=== PATIENT | male | born 1940 | race Caucasian/White ===

== ENCOUNTER → 2016-04-17 | Outpatient (REF) | payer MEDICARE, OTHER ==
[2016-04-17 15:08] LABS: ALBUMIN 3.6 GM/DL (3.2-5.2); ALBUMIN/GLOBULIN RATIO 1.16 (1.00-1.93); BILIRUBIN,TOTAL 0.7 MG/DL (0.2-1.0); CALCIUM LEVEL 8.8 MG/DL (8.8-10.2); CREATININE FOR GFR 1.3 MG/DL (0.70-1.30); GLOMERULAR FILTRATION RATE 57.4 (>42); POTASSIUM SERUM 3.9 MEQ/L (3.5-5.1); TOTAL PROTEIN 6.7 GM/DL (6.4-8.2)
== END ==
LOC: M SFHCLACO 09:08
PROVIDERS: ATTEND Physician Assistant
DX: I10 Essential (primary) hypertension (principal); E78.2 Mixed hyperlipidemia

== ENCOUNTER → 2017-05-20 | Outpatient (REF) | payer MEDICARE, OTHER | LOC: M LAB REF 12:15 | DX: N39.0 Urinary tract infection, site not specified (principal) | CPT/HCPCS: 87186 ==

== ENCOUNTER → 2017-06-02 | Outpatient (REF) | payer MEDICARE, OTHER ==
[2017-06-02 15:17] LABS: ALBUMIN 3.4 GM/DL (3.2-5.2); ALBUMIN/GLOBULIN RATIO 0.97 (1.00-1.93); ALKALINE PHOSPHATASE 90 U/L (45-117); ALT/SGPT 17 U/L (12-78); ANION GAP 6 MEQ/L (8-16); AST/SGOT 18 U/L (7-37); BILIRUBIN,TOTAL 0.5 MG/DL (0.2-1.0); BLOOD UREA NITROGEN 23 MG/DL (7-18); CALCIUM LEVEL 9.1 MG/DL (8.8-10.2); CARBON DIOXIDE LEVEL 29 MEQ/L (21-32); CHLORIDE LEVEL 108 MEQ/L (98-107); CHOLESTEROL LEVEL 190 MG/DL (<200); CHOLESTEROL RISK RATIO 5.757 (<5); CREATININE FOR GFR 1.51 MG/DL (0.70-1.30); GLOMERULAR FILTRATION RATE 48.2 (>42); GLUCOSE, FASTING 102 MG/DL (70-100); HDL CHOLESTEROL 33 MG/DL (>40); LDL CHOLESTEROL 120.2 MG/DL (<100); NON-HDL-C 157 MG/DL; POTASSIUM SERUM 4.1 MEQ/L (3.5-5.1); SODIUM LEVEL 143 MEQ/L (136-145); TOTAL PROTEIN 6.9 GM/DL (6.4-8.2); TRIGLYCERIDES LEVEL 184 MG/DL (<150)
== END ==
LOC: M SFHCLACO 08:10
DX: I10 Essential (primary) hypertension (principal); E78.2 Mixed hyperlipidemia
CPT/HCPCS: 80053

== ENCOUNTER → 2017-06-09 | Outpatient (REF) | payer MEDICARE, OTHER ==
[2017-06-09 15:20] LABS: ANION GAP 7 MEQ/L (8-16); BLOOD UREA NITROGEN 20 MG/DL (7-18); CALCIUM LEVEL 8.9 MG/DL (8.8-10.2); CARBON DIOXIDE LEVEL 30 MEQ/L (21-32); CHLORIDE LEVEL 105 MEQ/L (98-107); CREATININE FOR GFR 1.42 MG/DL (0.70-1.30); GLOMERULAR FILTRATION RATE 51.7 (>42); GLUCOSE, FASTING 97 MG/DL (70-100); SODIUM LEVEL 142 MEQ/L (136-145)
== END ==
LOC: M SFHCLACO 08:17
DX: I10 Essential (primary) hypertension (principal); Z79.899 Other long term (current) drug therapy; E78.2 Mixed hyperlipidemia; M10.9 Gout, unspecified; E83.51 Hypocalcemia; L29.9 Pruritus, unspecified; Z83.49 Family history of other endocrine, nutritional and metabolic diseases
CPT/HCPCS: 84443

== ENCOUNTER → 2018-02-19 | Outpatient (REF) | payer MEDICARE, OTHER ==
[2018-02-19 13:04] LABS: BASO # 0.1 10^3/uL (0.0-0.2); BASO % 0.8 % (0.0-1.0); EOS # 0.7 10^3/uL (0.0-0.50); EOS % 6.5 % (0.0-3.0); HEMATOCRIT 50.4 % (42.0-52.0); HEMOGLOBIN 16.9 g/dl (13.5-17.5); LYMPH # 2.1 10^3/uL (1.5-4.5); LYMPH % 19.3 % (24.0-44.0); MEAN CORPUSCULAR HEMOGLOBIN 31.1 pg (27.0-33.0); MEAN CORPUSCULAR HGB CONC 33.5 g/dl (32.0-36.5); MEAN CORPUSCULAR VOLUME 92.6 fl (80.0-96.0); MONO # 0.9 10^3/uL (0.0-0.8); MONO % 8.4 % (0.0-5.0); NEUTROPHILS % 64.4 % (36.0-66.0); PLATELET COUNT, AUTOMATED 210 10^3/uL (150-450); RED BLOOD COUNT 5.44 10^6/uL (4.30-6.10); WHITE BLOOD COUNT 10.9 10^3/uL (4.0-10.0)
[2018-02-19 13:09] LABS: APPEARANCE, URINE CLEAR (CLEAR); BACTERIA, URINE AUTO NEGATIVE (NEGATIVE); BILIRUBIN, URINE AUTO NEGATIVE (NEGATIVE); BLOOD, URINE BLOOD NEGATIVE (NEGATIVE); COLOR, URINE YELLOW (YELLOW); GLUCOSE, URINE (UA) AUTO NEGATIVE (NEGATIVE); KETONE, URINE AUTO NEGATIVE (NEGATIVE); LEUKOCYTE ESTERASE, URINE AUTO NEGATIVE (NEGATIVE); MUCUS, URINE SMALL (NEGATIVE); NITRITE, URINE AUTO NEGATIVE (NEGATIVE); PROTEIN, URINE AUTO 2+ mg/dL (NEGATIVE); RBC, URINE AUTO 2 /HPF (0-3); SPECIFIC GRAVITY URINE AUTO 1.018 (1.002-1.035); SQUAMOUS EPITHELIAL CELL UR AU 0 /HPF (0-6); WBC, URINE AUTO 1 /HPF (0-3)
[2018-02-19 13:13] LABS: ALBUMIN 3.5 GM/DL (3.2-5.2); BILIRUBIN,TOTAL 0.5 MG/DL (0.2-1.0); CALCIUM LEVEL 9.1 MG/DL (8.8-10.2); CREATININE FOR GFR 1.37 MG/DL (0.70-1.30); GLOMERULAR FILTRATION RATE 53.8 (>42); POTASSIUM SERUM 3.8 MEQ/L (3.5-5.1); TOTAL PROTEIN 6.8 GM/DL (6.4-8.2)
[2018-02-19 13:21] LABS: TOTAL 25(OH) VITAMIN D 18.5 NG/ML (30.0-100.0)
[2018-02-19 13:38] LABS: HEMOGLOBIN A1c 6.2 %
[2018-02-19 14:13] LABS: MAU/CREAT RATIO 535.7 MCG/MG (0.0-30.0)
== END ==
LOC: M SFHCADAM 09:18
PROVIDERS: ATTEND Physician Assistant Medical
DX: I12.9 Hypertensive chronic kidney disease with stage 1 through stage 4 chronic kidney disease, or unspecified chronic kidney disease (principal); E78.2 Mixed hyperlipidemia; N18.3 Chronic kidney disease, stage 3 (moderate)

== ENCOUNTER → 2018-03-05 | Outpatient (CLI) | payer MEDICARE, OTHER ==
--- NOTE | 2018-03-05 08:33 | REP ---
Urinary tract sonogram: History: Chronic kidney disease, stage III. Comparison: No comparison study. Findings: Scanning at the level of the urinary bladder shows no abnormality. The bladder is nearly empty at the time of scanning. Renal cortical echogenicity pattern is normal bilaterally and contours are smooth. There is no evidence of hydronephrosis, cyst, mass, or calculus in either kidney. The right kidney measures 11.5 x 6.1 x 6.3 cm. There is a 1.8 x 1.5 x 1.0 cm cyst at the upper pole of the right kidney. There is also 1.9 x 1.6 x 1.8 cm cyst in the upper pole. A 1.1 cm cyst is seen in the lower pole on the right. Left renal dimensions are 12.9 x 5.7 x 5.5 cm. On the left, there is a one 0.0 x 1.2 x 0.7 cm cyst in the mid pole position. Impression: Small bilateral renal cysts. Otherwise negative urinary tract sonography. Electronically Signed by Guido Grider MD 03/05/2018 08:24 A
== END ==
LOC: M RAD 07:49
PROVIDERS: ATTEND Physician Assistant Medical
DX: N28.1 Cyst of kidney, acquired (principal); N18.3 Chronic kidney disease, stage 3 (moderate)

== ENCOUNTER → 2018-03-05 | Outpatient (CLI) | payer MEDICARE, OTHER ==
--- NOTE | 2018-03-09 09:47 | ECHO ---
DATE OF PROCEDURE: 03/05/2018 REFERRING PHYSICIAN: Aileen Hampton, physician medical office receptionist assistant. INDICATION: Localized edema. HEIGHT: 67 inches. WEIGHT: 218 pounds. 2D MEASUREMENTS: Left atrium: 3.7 cm Left atrial volume index: 31 Aortic root: 3.7 cm Ventricular septum: 1.30 cm Posterior wall: 1.31 cm Left ventricle diastole: 4.7 cm Inferior vena cava: 1.5 cm (more than 50% inspiratory variation). DOPPLER MEASUREMENTS: Aortic valve velocity: 225 cm/s LVOT velocity: 91.6 cm/s LVOT VTI: 17.3 cm Trace mitral regurgitation. Mitral E velocity: 74.7 cm/s Mitral A velocity: 89.7 cm/s Mitral deceleration time: 239 ms Very mild tricuspid regurgitation. Estimated right ventricle systolic pressure 30 mmHg assuming a right atrial pressure of 5 mmHg. Pulmonary artery systolic pressure 19 mmHg. MITRAL ANNULAR TISSUE DOPPLER: E-prime septal: 5.1 cm/s E-prime lateral: 5.7 cm/s DESCRIPTION: Rhythm was sinus bradycardia. Image quality was fair. No pericardial effusion. This was a 2D, M-mode, color flow Doppler, and pulsed wave Doppler examination and included mitral annular tissue Doppler. CONCLUSIONS: 1. Mild concentric left ventricular hypertrophy. Normal regional LV wall motion and wall thickening. Normal LV systolic function. LVEF 60% by visual estimate. Grade I LV diastolic dysfunction. 2. Mild left atrial dilatation by left atrial volume index. 3. Moderate aortic valve sclerosis of a 3-cusp aortic valve. No aortic valve regurgitation. 4. Moderate mitral annular calcification. Trace mitral regurgitation. No mitral stenosis. 5. Suggestive of central venous pressure of 5-10 mmHg (normal). ADDITIONAL COMMENTS AND RECOMMENDATIONS: Suggest a followup echocardiogram Doppler in 3 years.
== END ==
LOC: M CARPUL 07:45
PROVIDERS: ATTEND Physician Assistant Medical
DX: R60.1 Generalized edema (principal); N28.1 Cyst of kidney, acquired; N18.3 Chronic kidney disease, stage 3 (moderate)

== ENCOUNTER → 2018-03-26 | Outpatient (REF) | payer MEDICARE, OTHER | LOC: M SFHCPLAZ 19:03 | PROVIDERS: ATTEND Dermatology | DX: D22.30 Melanocytic nevi of unspecified part of face (principal); L57.0 Actinic keratosis; L57.8 Other skin changes due to chronic exposure to nonionizing radiation; L81.4 Other melanin hyperpigmentation ==

== ENCOUNTER → 2018-08-12 | Outpatient (REF) | payer MEDICARE, OTHER | LOC: M SFHCLACO 16:35 | PROVIDERS: ATTEND Physician Assistant | DX: L30.9 Dermatitis, unspecified (principal) | CPT/HCPCS: 11104; 88305; G0463 ==

== ENCOUNTER → 2018-09-29 | Outpatient (REF) | payer MEDICARE, OTHER ==
[2018-09-29 15:19] LABS: ALBUMIN 3.5 GM/DL (3.2-5.2); BILIRUBIN,TOTAL 0.6 MG/DL (0.2-1.0); CALCIUM LEVEL 8.9 MG/DL (8.8-10.2); CHOLESTEROL RISK RATIO 5.4 (<5); CREATININE FOR GFR 1.34 MG/DL (0.70-1.30); TOTAL 25(OH) VITAMIN D 20.3 NG/ML (30.0-100.0); TOTAL PROTEIN 6.6 GM/DL (6.4-8.2); URIC ACID 7.8 MG/DL (3.5-7.2)
== END ==
LOC: M SFHCADAM 08:02
PROVIDERS: ATTEND Physician Assistant
DX: I12.9 Hypertensive chronic kidney disease with stage 1 through stage 4 chronic kidney disease, or unspecified chronic kidney disease (principal); E55.9 Vitamin D deficiency, unspecified; E78.2 Mixed hyperlipidemia; N18.3 Chronic kidney disease, stage 3 (moderate); Z12.5 Encounter for screening for malignant neoplasm of prostate; M10.9 Gout, unspecified
CPT/HCPCS: 80053; 80061; 82306; 84550; G0103

== ENCOUNTER → 2018-11-27 | Outpatient (CLI) | payer MEDICARE, OTHER ==
[~2018-11-27] MED LIST: ATEN50TA9; INDO-16; NIAC500T64; PRAV10TA3; VITA500045
--- NOTE | 2018-11-27 11:12 | REP ---
Limited exam. REASON: Pain after trauma. PRIORS: None. There is a grade 1 superior endplate compression deformity involving L1, the age cannot be determined by this exam. There is mild to moderate posterior disc space narrowing and anterior lipping at every level. Tiny partial syndesmophytes are seen bilaterally at all levels. There is degenerative facet joint change seen L3-4 through L5-S1 on the lateral view. There is calcifications of the aortic wall and evidence of aneurysmal dilatation with an AP measurement of approximately 6.3 cm. IMPRESSION: 1. Superior endplate compression deformity of L1 as described above. 2. Chronic changes as described above. 3. Suspected abdominal aortic aneurysm. Abdominal aortic ultrasound is recommended for further evaluation. A stat report was immediately generated at the time of this dictation and made available for the patient's healthcare provider Jayla Naidu for review. Electronically Signed by Bryant Mina DO 11/27/2018 12:18 P
== END ==
LOC: M ADAMS 10:36
PROVIDERS: ATTEND Physician Assistant
DX: S30.0XXA Contusion of lower back and pelvis, initial encounter (principal); X58.XXXA Exposure to other specified factors, initial encounter; Y92.89 Other specified places as the place of occurrence of the external cause; Y93.9 Activity, unspecified; Y99.9 Unspecified external cause status

== ENCOUNTER 2018-11-30 15:50 | Emergency (ER) | payer MEDICARE, OTHER ==
[~2018-11-30] VITALS: Ht 170.2 cm; Wt 92.3 kg
[2018-11-30] MEDS ORDERED: NIAC500T64 (16:02)
[2018-11-30] MEDS ORDERED: VITA500045 (16:02)
[2018-11-30] MEDS ORDERED: INDO-16 (16:02)
[2018-11-30] MEDS ORDERED: PRAV10TA3 (16:02)
[2018-11-30] MEDS ORDERED: ATEN50TA9 (16:02)
[2018-11-30 17:47] VITALS: BP 142/71
== END 2018-11-30 17:48 | disposition home or self-care (01) ==
LOC: M ED 15:50
DX: M54.5 Low back pain (principal); I71.4 Abdominal aortic aneurysm, without rupture; I10 Essential (primary) hypertension; E78.5 Hyperlipidemia, unspecified; M19.90 Unspecified osteoarthritis, unspecified site; N18.3 Chronic kidney disease, stage 3 (moderate); M11.20 Other chondrocalcinosis, unspecified site; Z87.891 Personal history of nicotine dependence; Z79.899 Other long term (current) drug therapy

== ENCOUNTER → 2018-11-30 | Outpatient (CLI) | payer MEDICARE, OTHER ==
--- NOTE | 2018-11-30 13:36 | REP ---
REASON: Followup plain film finding of suspected abdominal aortic aneurysm. Multiple ultrasonographic images of the abdominal aorta were obtained from the level of the celiac axis to the aortoiliac bifurcation in the longitudinal and transverse scan planes. The maximal AP dimension of the abdominal aorta is 4.3 measured in the longitudinal scan plane. This is infrarenal in location and extends to the common iliac arteries. There is bilateral common iliac arterial ectasia right greater than left. IMPRESSION: Infrarenal abdominal aortic aneurysm as described above. Electronically Signed by Bryant Mina DO 11/30/2018 02:15 P
== END ==
LOC: M RAD 09:03
PROVIDERS: ATTEND Physician Assistant
DX: I71.4 Abdominal aortic aneurysm, without rupture (principal)

== ENCOUNTER → 2018-12-29 | Outpatient (CLI) | payer MEDICARE, OTHER ==
--- NOTE | 2018-12-29 18:34 | REP ---
Acute abdominal series: Four views. Tree: Right lower quadrant pain. Findings: Upright chest radiograph shows no evidence of infiltrate or free subdiaphragmatic air. The thoracic aorta is ectatic and tortuous. Heart is not enlarged. Pleural angles are sharp. Supine and erect views of the abdomen demonstrate air and stool in a nondistended colon. No small bowel dilation is seen. No mass, organomegaly, or pathologic calcification is seen. The abdominal aorta is dilated and calcific with a transverse dimension of 6.3 cm. This measurement would include approximately 20% magnification. The recent abdominal aortic sonography identified this aneurysm. Impression: No evidence of obstruction or ileus. Unremarkable bowel gas pattern. Abdominal aortic aneurysm seen as reported on recent sonography. Electronically Signed by Guido Grider MD 12/30/2018 07:59 A
== END ==
LOC: M ADAMS 15:39
PROVIDERS: ATTEND Physician Assistant
DX: K59.00 Constipation, unspecified (principal); R10.31 Right lower quadrant pain; R30.0 Dysuria

== ENCOUNTER → 2019-01-12 | Outpatient (REF) | payer MEDICARE, OTHER ==
[2019-01-12 12:15] LABS: CREATININE FOR GFR 1.53 MG/DL (0.70-1.30); GLOMERULAR FILTRATION RATE 47.2 (>42)
== END ==
LOC: M LABDRWAD 10:31
PROVIDERS: ATTEND Surgery Vascular Surgery
DX: I71.4 Abdominal aortic aneurysm, without rupture (principal)

== ENCOUNTER → 2019-01-26 | Outpatient (CLI) | payer MEDICARE, OTHER ==
[~2019-01-26] MED LIST changes: +ISOVUE-370 76% 100ML VIAL (Q9967) As Ordered ONE
--- NOTE | 2019-01-26 17:28 | REP ---
Abdominal and pelvic CT angiography with IV contrast: History: Abdominal aortic aneurysm. Comparison aortic sonography November 30, 2018 showed a 4.3 cm infrarenal abdominal aortic aneurysm. No comparison CT study. CT contrast dose: 100 mL of intravenous Isovue [address] findings: Digital preliminary advance scout radiograph is unremarkable. There are small cortical cysts affecting the right kidney. The largest of these measures 1.8 cm. There are one or two dystrophic calcifications in the prostate gland. There is a wedge compression fracture deformity at L1 with approximately 25% loss of vertebral body height. There is a slightly less prominent wedge compression deformity at T12 with 10% loss of vertebral body height. There is a Schmorl's node at the superior endplate of T11. No bony destructive lesion is seen. CT angiographic findings: The suprarenal abdominal aorta is tortuous and mildly ectatic. At the diaphragmatic hiatus, the distal thoracic aorta measures 2.7 cm in AP dimension. 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 The abdominal aorta is normal in caliber at this level. The SMA is calcific but not the stenotic. There is heavy vascular calcification in the origins of the renal arteries bilaterally. The right renal artery is heavily calcified and I suspect stenosis. An infrarenal abdominal aortic aneurysm is confirmed with anterior mural thrombus. The maximum anteroposterior dimension of the aneurysm is 4.9 cm. Transverse diameter 4.9 cm. The right common iliac artery is mildly aneurysmally dilated measuring 2.2 cm in AP dimension. The left common iliac artery measures 2.1 cm and is also mildly dilated. The iliacs are heavily calcified but no high-grade stenosis is seen. Internal and external iliac arteries are patent. The inferior mesenteric artery takes off from the aneurysmal segment of the abdominal aorta. Its lumen appears enhanced with contrast suggesting collateral filling. 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 Electronically Signed by Guido Grider MD 01/26/2019 05:44 P
== END ==
LOC: M RAD 12:41
PROVIDERS: ATTEND Surgery Vascular Surgery
DX: I71.4 Abdominal aortic aneurysm, without rupture (principal)
CPT/HCPCS: 74174; Q9967

== ENCOUNTER 2019-02-21 06:40 | Day surgery (SDC) | payer MEDICARE, OTHER ==
[~2019-02-21] VITALS: Ht 170.2 cm; Wt 84.8 kg
[~2019-02-21 06:40] MED LIST changes: +GLUC500C37 PO; -ISOVUE-370 76% 100ML VIAL (Q9967) As Ordered ONE; +KRIL1CAP10 PO; +NS 1,000 ML IV ONE
[2019-02-21] MEDS ORDERED: LIDOCAINE 2% INJ 100 MG/5 ML SDV (FOR ANES.) As Ordered ONE (07:47)
[2019-02-21] MEDS ORDERED: PROPOFOL 200 MG/20 ML VIAL As Ordered ONE (07:47)
--- NOTE | 2019-02-21 08:24 | ROOR ---
Patient Name: Talib Ramírez Procedure Date: 02/21/2019 8:00 AM Date of : 1940 Age: 78 Room: [facility] Gender: Male Note Status: Finalized Procedure: Total Colonoscopy to Cecum + Cold Snare Polypectomy + Hemoclip Indications: Last colonoscopy: 2008, Lower abdominal pain, Weight loss Providers: Xiang Chamorro MD Referring MD: MEMO Noriega PA-C Requesting Provider: Medicines: Monitored Anesthesia Care Complications: No immediate complications. Procedure: Pre-Anesthesia Assessment: - The heart rate, respiratory rate, oxygen saturations, blood pressure, adequacy of pulmonary ventilation, and response to care were monitored throughout the procedure. The Colonoscope was introduced through the anus and advanced to the cecum, identified by appendiceal orifice and ileocecal valve. The colonoscopy was performed without difficulty. The patient tolerated the procedure well. The quality of the bowel preparation was good. Findings: The perianal and digital rectal examinations were normal. Non-bleeding internal hemorrhoids were found during retroflexion. The hemorrhoids were small and Grade I (internal hemorrhoids that do not prolapse). Multiple small and large-mouthed diverticula were found in the recto-sigmoid colon, sigmoid colon and descending colon. A small polyp was found in the transverse colon. The polyp was sessile. The polyp was removed with a cold snare. Resection and retrieval were complete. To prevent bleeding after the polypectomy, one hemostatic clip was successfully placed (MR conditional). There was no bleeding at the end of the procedure. The exam was otherwise without abnormality on direct and retroflexion views. Impression: - Non-bleeding internal hemorrhoids. - Diverticulosis in the recto-sigmoid colon, in the sigmoid colon and in the descending colon. - One small polyp in the transverse colon, removed with a cold snare. Resected and retrieved. Clip (MR conditional) was placed. - The examination was otherwise normal on direct and retroflexion views. - The exam was otherwise normal to the cecum. Recommendation: - Patient has a contact number available for emergencies. The signs and symptoms of potential delayed complications were discussed with the patient. Return to normal activities tomorrow. Written discharge instructions were provided to the patient. - High fiber diet. - Discharge patient to home. - Continue present medications. - Await pathology results. - Telephone GI clinic for pathology results in 1 week. - Repeat colonoscopy for symptoms only. - Return to referring physician. - The findings and recommendations were discussed with the patient's family. Xiang Chamorro MD Xiang Chamorro MD 02/21/2019 8:24:01 AM Electronically signed by Xiang Chamorro MD Number of Addenda: 0 Note Initiated On: 02/21/2019 8:00 AM Estimated Blood Loss: Estimated blood loss: none.
[2019-02-21 08:40] VITALS: BP 128/70
== END 2019-02-21 08:52 | disposition home or self-care (01) ==
LOC: M OPP 06:40
PROVIDERS: ATTEND Internal Medicine Gastroenterology
DX: K64.0 First degree hemorrhoids (principal); K63.5 Polyp of colon; K57.30 Diverticulosis of large intestine without perforation or abscess without bleeding; R10.30 Lower abdominal pain, unspecified; R63.4 Abnormal weight loss; F17.210 Nicotine dependence, cigarettes, uncomplicated; Z79.899 Other long term (current) drug therapy

== ENCOUNTER → 2019-05-28 | Outpatient (REF) | payer MEDICARE, OTHER ==
[~2019-05-28] MED LIST changes: -NS 1,000 ML IV ONE
[2019-05-28 10:49] LABS: ALBUMIN 3.3 GM/DL (3.2-5.2); BILIRUBIN,TOTAL 0.6 MG/DL (0.2-1.0); CALCIUM LEVEL 8.9 MG/DL (8.8-10.2); CHOLESTEROL RISK RATIO 4.421 (<5); CREATININE FOR GFR 1.28 MG/DL (0.70-1.30); POTASSIUM SERUM 3.5 MEQ/L (3.5-5.1); TOTAL PROTEIN 6.6 GM/DL (6.4-8.2)
[2019-05-30 07:54] LABS: TOTAL 25(OH) VITAMIN D 17.7 NG/ML (30.0-100.0)
== END ==
LOC: M SFHCADAM 08:26
PROVIDERS: ATTEND Physician Assistant
DX: E78.2 Mixed hyperlipidemia (principal); I10 Essential (primary) hypertension; N18.3 Chronic kidney disease, stage 3 (moderate); E55.9 Vitamin D deficiency, unspecified

== ENCOUNTER → 2019-11-28 | Outpatient (REF) | payer MEDICARE, OTHER ==
[2019-11-28 13:13] LABS: ALBUMIN 3.5 GM/DL (3.2-5.2); BILIRUBIN,TOTAL 0.7 MG/DL (0.2-1.0); CALCIUM LEVEL 9.1 MG/DL (8.8-10.2); CHOLESTEROL RISK RATIO 4.815 (<5); CREATININE FOR GFR 1.47 MG/DL (0.70-1.30); GLOMERULAR FILTRATION RATE 49.3 (>42); POTASSIUM SERUM 3.9 MEQ/L (3.5-5.1)
[2019-11-28 13:18] LABS: TOTAL 25(OH) VITAMIN D 21.6 NG/ML (30.0-100.0)
== END ==
LOC: M SFHCADAM 08:29
PROVIDERS: ATTEND Physician Assistant
DX: I10 Essential (primary) hypertension (principal); E78.2 Mixed hyperlipidemia; E55.9 Vitamin D deficiency, unspecified

== ENCOUNTER → 2019-12-14 | Outpatient (CLI) | payer MEDICARE, OTHER ==
--- NOTE | 2019-12-14 16:27 | REP ---
INDICATION: SMOKER. COMPARISON: No comparison chest x-ray. TECHNIQUE: Two views.. FINDINGS: The lungs are well inflated and free of infiltrate. The pleural angles are sharp. The heart size is normal. Pulmonary vasculature is not increased. No significant bony abnormality is seen. Thoracic aorta is ectatic and quite tortuous. IMPRESSION: Tortuous thoracic aorta. Otherwise no active disease.. <Electronically signed by Manny Grider > 12/14/19 [id number]
== END ==
LOC: M ADAMS 14:32
PROVIDERS: ATTEND Physician Assistant
DX: E78.2 Mixed hyperlipidemia (principal); F17.210 Nicotine dependence, cigarettes, uncomplicated
CPT/HCPCS: 71046; G0463

== ENCOUNTER → 2020-05-30 | Outpatient (REF) | payer MEDICARE, OTHER ==
[2020-05-30 19:39] LABS: ALBUMIN 3.4 GM/DL (3.2-5.2); BILIRUBIN,TOTAL 0.5 MG/DL (0.2-1.0); CALCIUM LEVEL 9.4 MG/DL (8.8-10.2); CHOLESTEROL RISK RATIO 4.71 (<5); CREATININE FOR GFR 1.46 MG/DL (0.70-1.30); GLOMERULAR FILTRATION RATE 49.7 (>42); POTASSIUM SERUM 4.1 MEQ/L (3.5-5.1); TOTAL 25(OH) VITAMIN D 15.6 NG/ML (30.0-100.0); TOTAL PROTEIN 6.4 GM/DL (6.4-8.2)
== END ==
LOC: M SFHCADAM 08:43
PROVIDERS: ATTEND Physician Assistant
DX: I12.9 Hypertensive chronic kidney disease with stage 1 through stage 4 chronic kidney disease, or unspecified chronic kidney disease (principal); E78.2 Mixed hyperlipidemia; N18.30 Chronic kidney disease, stage 3 unspecified; E55.9 Vitamin D deficiency, unspecified; Z12.5 Encounter for screening for malignant neoplasm of prostate
CPT/HCPCS: 80053; 80061; 82306; G0103

== ENCOUNTER → 2020-11-29 | Outpatient (REF) | payer MEDICARE, OTHER ==
[2020-11-29 13:20] LABS: HEMATOCRIT 49.8 % (42.0-52.0); HEMOGLOBIN 16.6 g/dl (13.5-17.5); MEAN CORPUSCULAR HEMOGLOBIN 31.5 pg (27.0-33.0); MEAN CORPUSCULAR HGB CONC 33.3 g/dl (32.0-36.5); MEAN CORPUSCULAR VOLUME 94.5 fl (80.0-96.0); PLATELET COUNT, AUTOMATED 154 10^3/uL (150-450); RED BLOOD COUNT 5.27 10^6/uL (4.30-6.10); WHITE BLOOD COUNT 10.1 10^3/uL (4.0-10.0)
[2020-11-29 13:58] LABS: ALBUMIN 3.1 GM/DL (3.2-5.2); BILIRUBIN,TOTAL 0.6 MG/DL (0.2-1.0); CALCIUM LEVEL 9.4 MG/DL (8.8-10.2); CHOLESTEROL RISK RATIO 4.771 (<5); CREATININE FOR GFR 1.58 MG/DL (0.70-1.30); GLOMERULAR FILTRATION RATE 45.3 (>42); POTASSIUM SERUM 4.1 MEQ/L (3.5-5.1); TOTAL PROTEIN 6.6 GM/DL (6.4-8.2)
== END ==
LOC: M SFHCADAM 08:05
PROVIDERS: ATTEND Physician Assistant
DX: N18.30 Chronic kidney disease, stage 3 unspecified (principal); I12.9 Hypertensive chronic kidney disease with stage 1 through stage 4 chronic kidney disease, or unspecified chronic kidney disease; E78.2 Mixed hyperlipidemia; E55.9 Vitamin D deficiency, unspecified

== ENCOUNTER → 2021-06-05 | Outpatient (REF) | payer MEDICARE, OTHER ==
[2021-06-05 13:25] LABS: ALBUMIN 3.3 GM/DL (3.2-5.2); BILIRUBIN,TOTAL 0.7 MG/DL (0.2-1.0); CREATININE FOR GFR 1.61 MG/DL (0.70-1.30); GLOMERULAR FILTRATION RATE 44.3 (>42); POTASSIUM SERUM 3.8 MEQ/L (3.5-5.1); TOTAL PROTEIN 6.4 GM/DL (6.4-8.2)
== END ==
LOC: M SFHCADAM 08:20
PROVIDERS: ATTEND Physician Assistant
DX: I12.9 Hypertensive chronic kidney disease with stage 1 through stage 4 chronic kidney disease, or unspecified chronic kidney disease (principal); E78.2 Mixed hyperlipidemia; N18.30 Chronic kidney disease, stage 3 unspecified; E55.9 Vitamin D deficiency, unspecified

== ENCOUNTER → 2021-10-23 | Outpatient (CLI) | payer MEDICARE, OTHER | LOC: M CARPUL 08:00 | PROVIDERS: ATTEND Student in an Organized Health Care Education/Training Program | DX: I71.2 Thoracic aortic aneurysm, without rupture (principal) ==

== ENCOUNTER → 2024-11-16 | Outpatient (REF) | payer MEDICARE, OTHER ==
[~2024-11-16] MED LIST changes: -PRAV10TA3; +PRAV10TA43
== END ==
LOC: M LAB REF 10:23
PROVIDERS: ATTEND Internal Medicine Gastroenterology
DX: R19.7 Diarrhea, unspecified (principal)